=== PATIENT | male | born 1945 | race Caucasian/White ===

== ENCOUNTER 2020-08-25 17:57 | Emergency (ER) | payer BC ==
[~2020-08-25] VITALS: Ht 195.6 cm; Wt 92.2 kg
[2020-08-25] MEDS ORDERED: amox tr/potassium clavulanate 875/125mg TAB PO ONE (19:10)
[2020-08-25] MEDS ORDERED: TETanus/Pertussis (Acell)/Diphther VAC/PF (Tdap-Adult) 0.5ml syringe IMVAC ONE (19:10)
[2020-08-25] MEDS ORDERED: AMOX-580 PO (19:31)
[2020-08-25 20:10] VITALS: BP 155/82
== END 2020-08-25 20:12 | disposition home or self-care (01) ==
LOC: ER 17:57
DX: S61.257A Open bite of left little finger without damage to nail, initial encounter (principal); Z79.899 Other long term (current) drug therapy; W57.XXXA Bitten or stung by nonvenomous insect and other nonvenomous arthropods, initial encounter; Y93.89 Activity, other specified; Y92.89 Other specified places as the place of occurrence of the external cause; Y99.8 Other external cause status
CPT/HCPCS: 73130; 90471; 90715; 99283